=== PATIENT | male | born 1960 | race Caucasian/White ===

== ENCOUNTER 2018-06-26 17:27 | Inpatient (IN) | payer OTHER ==
[~2018-06-26] VITALS: Ht 172.7 cm; Wt 80.0 kg
--- OUTSIDE RECORDS SUMMARY | 2018-06-26 17:29 | XMS REPORT ---
Author Author [facility] Address Unknown Phone Unavailable Care Team Providers Care Globe Mounter Name Role Phone Cassie WALL Unavailable Unavailable Problems This patient has no known problems. Allergies, Adverse Reactions, Alerts This patient has no known allergies or adverse reactions. Medications This patient has no known medications. Results Test Description Test Time Test Comments Text Results Atomic Results Result Comments ANG TUNNEL CATH CENTRAL INS W/PORT C 2018-06-02 10:00:00 Reason for Exam:->C85.11 FINAL REPORT Procedure: Chest port placement. History: Malignancy Operators: Duke Conscious Sedation: Versed 1 mg, fentanyl 50 mcg, (Administered after informed consent was obtained) Vital signs were monitored throughout the procedure by a nurse, and remained stable. Physician intra- service time was 30 minutes. Total fluoroscopy time: 7 seconds Estimated dose reported as ( Ka, r): 0.1 mGy Technique: Informed written consent was obtained. The left neck and chest were prepped. All elements maximal sterile barrier technique was utilized for this procedure, including utilization of sterile scrub solution for skin prep, a large sterile sheet to cover the areas of the patient that were not prepped, and hand hygiene, mask, head covering, and sterile gown for performing radiologist and scrub technologist. Under direct real-time ultrasound guidance the left internal jugular vein was accessed with a micropuncture needle. A 5 Cuban sheath and dilator was placed. A 3 J-wire was then advanced and the access site was dilated. A 7 Cuban peel-away introducer sheath was then placed. The distal end of the 5 Cuban port catheter was then advanced through the peel-away and placed with tip under fluoroscopic control at the atriocaval junction. The proximal end of the catheter was then back tunneled on the anterior chest. A subcutaneous pocket was then made. The catheter was t hen attached to a single-lumen port which was placed into the pocket and anchored with 2 Monocryl sutures. The port flushed and aspirated easily following placement and was packed with 5cc of Heparin at 100U/cc (total dosage of 500U). The overlying skin was closed with interrupted subcuticular sutures. Steri-strips and dressing was applied. There are no immediate complications. The patient tolerated the procedure well and left the department in the same condition. Findings: 1. Inital ultrasound evaluation prior to port placement showed a patent and compressible left internal jugular vein. An ultrasound image was saved to PACS. 2. Spot radiograph following port placement revealed appropriate positioning with the tip projecting at the cavoatrial junction. No immediate pneumothorax identified. Impression: Successful placement of a single-lumen left sided chest port using sonographic and fluoroscopic guidance and conscious sedation. The tip is satisfactorily positioned at the atriocaval junction. A "Power" port rated for power CT injections was placed. Signed: Humberto Wall MDReport Verified Date/Time: 06/02/2018 10:00:33 Reading Location: [facility] Radiology Reading Room /APTT 2018-06-02 08:00:00 PROTIME (BEAKER) (test ksms=[id number]) 9.9 sec 9.3-12.0 INR (BEAKER) (test jwpp=219) 0.9 <=5.9 PARTIAL THROMBOPLASTIN TIME (BEAKER) (test ssqy=666) 25.8 sec 23.0-35.0 RECOMMENDED COUMADIN/WARFARIN INR THERAPY RANGESSTANDARD DOSE: 2.0 - 3.0 Inclu keenan: PROPHYLAXIS for venous thrombosis, systemic embolization; TREATMENT for yogi ous thrombosis and/or pulmonary embolus.HIGH RISK: Target INR is 2.5-3.5 for pat ients with mechanical heart valves.Final Information (Auto Output)Final Informat ion (Auto Output)Final Information (Auto Output)
--- OUTSIDE RECORDS SUMMARY | 2018-06-26 17:29 | XMS REPORT | Clinical Summary ---
Author Author MABLE [email or web address] [facility] Address Unknown Phone Unavailable Care Team Providers Care Middleware Consultant Name Role Phone Pcp, No PCP Unavailable Allergies No Known Allergies Medications No known medications Active Problems Not on file Encounters Care Team Description Date Type Specialty Marianna Wall MD Naik, Humberto Enriuqe II, MD Unspecified B-cell lymphoma, lymph nodes of head, face, and neck (HCC) 06/02/2018 Hospital Encounter Marianna Wall MD Unspecified B-cell lymphoma, lymph nodes of head, face, and neck (HCC) (Primary Dx) 05/29/2018 Outside Orders after 06/25/2017 Social History Date Tobacco Use Types Packs/Day Years Used Quit: 06/01/2014 Former Smoker Smokeless Tobacco: Former Snuff User Alcohol Use Drinks/Week oz/Week Comments No Alcohol Habits Answer Date Recorded How often do you have a drink containing alcohol? Never 06/01/2018 How many drinks containing alcohol do you have on Not asked a typical day when you are drinking? How often do you have six or more drinks on one Not asked occasion? Sex Assigned at Date Recorded Not on file Industry Job Start Date Occupation Not on file Not on file Not on file Travel End Travel History Travel Start No recent travel history available. Last Filed Vital Signs Time Taken Vital Sign Reading 06/02/2018 10:00 AM MICROBIOLOGY SOIL SCIENTIST Blood Pressure 126/84 06/02/2018 10:00 AM MICROBIOLOGY SOIL SCIENTIST Pulse 59 06/02/2018 10:00 AM MICROBIOLOGY SOIL SCIENTIST Temperature 37 C (98.6 F) 06/02/2018 10:00 AM MICROBIOLOGY SOIL SCIENTIST Respiratory Rate 18 06/02/2018 10:00 AM MICROBIOLOGY SOIL SCIENTIST Oxygen Saturation 97% - Inhaled Oxygen - Concentration 06/01/2018 9:33 AM MICROBIOLOGY SOIL SCIENTIST Weight 79.4 kg (175 lb) 06/01/2018 9:33 AM MICROBIOLOGY SOIL SCIENTIST Height 175.3 cm (5' 9") 06/01/2018 9:33 AM MICROBIOLOGY SOIL SCIENTIST Body Mass Index 25.84 Plan of Treatment Not on file Implants Device Identifier Shelf Expiration Date Model / Serial / Lot Implanted Type Area Manufactur er 11/21/2019 [id number] / / [id number] Power Port Left: Chest BARD Implanted: Qty: 1 on 06/02/2018 by Humberto Guy II, MD SYSTEMS Procedures Comments Procedure Name Priority Date/Time Associated Diagnosis CARDIAC CATH REPORT - 06/12/2018 SCAN 11:11 AM MICROBIOLOGY SOIL SCIENTIST IR PORT-A-CATH PLACEMENT Routine 06/02/2018 Unspecified B-cell 9:30 AM MICROBIOLOGY SOIL SCIENTIST lymphoma, lymph nodes of head, face, and neck (HCC) PT/APTT Routine 06/02/2018 7:41 AM MICROBIOLOGY SOIL SCIENTIST after 06/25/2017 Results * CARDIAC CATH REPORT - SCAN (06/12/2018 11:11 AM MICROBIOLOGY SOIL SCIENTIST) Narrative Performed At * IR Port-a-Cath Placement (06/02/2018 9:30 AM MICROBIOLOGY SOIL SCIENTIST) Narrative Performed At FINAL REPORT [employer] Procedure: Chest port placement. History: Malignancy Operators: Duke Conscious Sedation:Versed 1 mg, fentanyl 50 mcg, (Administered after informed consent was obtained) Vital signs were monitored throughout the procedure by a nurse, and remained stable. Physician intra-service time was 30 minutes. Total fluoroscopy time: 7 seconds Estimated dose reported as ( Ka, r):0.1 mGy Technique: Informed written consent was obtained. [...] and scrub technologist. Under direct real-time ultrasound guidancethe left internal jugular vein was accessed with a micropuncture needle. A 5 Bolivian sheath and dilator was placed. A 3 J-wire was then advanced and the access site was dilated. A 7 Bolivian peel-away introducer sheath was then placed. The distal end of the 5 Bolivian port catheter was then advanced through the peel-away and placed with tip under fluoroscopic control at the atriocaval junction. The proximal end of the catheter was then back tunneled on the anterior chest. A subcutaneous pocket was then made. The catheter was then attached to asingle-lumen port which was placed into the pocket and anchored with 2 Monocryl sutures. The port flushed and aspirated easily following placement and was packed with 5cc of Heparin at 100U/cc (total dosage of 500U). The overlying skin was closed with interrupted subcuticular sutures. Steri-strips anddressing was applied. There are no immediate complications. [...] CT injections was placed. Signed: Humberto Wall MD Report Verified Date/Time:06/02/2018 10:00:33 Reading Location: [facility] Radiology Reading Room Procedure Note Interface, External Ris In - 06/02/2018 10:02 AM MICROBIOLOGY SOIL SCIENTIST FINAL REPORT Procedure: Chest port placement. History: Malignancy Operators: Duke Conscious Sedation: Versed 1 mg, fentanyl 50 mcg, (Administered after informed consent was obtained) Vital signs were monitored throughout the procedure by a nurse, and remained stable. Physician intra-service time was 30 minutes. Total fluoroscopy time: [...] accessed with a micropuncture needle. A 5 Bolivian sheath and dilator was placed. A 3 J-wire was then advanced and the access site was dilated. A 7 Bolivian peel-away introducer sheath was then placed. The distal end of the 5 Bolivian port catheter was then advanced through the peel-away and placed with tip under fluoroscopic control at the atriocaval junction. The proximal end of the catheter was then back tunneled on the anterior chest. A subcutaneous pocket was then made. The catheter was then attached to a single-lumen port which was [...] CT injections was placed. Signed: Humberto Wall MD Report Verified Date/Time: 06/02/2018 10:00:33 Reading Location: [facility] Radiology Reading Room Performing Organization Address City/State/Zipcode Phone Number GE RIS * PT/aPTT (06/02/2018 7:41 AM MICROBIOLOGY SOIL SCIENTIST) Protime 9.9 9.3 - 12.0 sec [facility] [employer] LABORATORY INR 0.9 <=5.9 [facility] LABOR[facility] PTT 25.8 23.0 - 35.0 sec [facility] Specimen Blood Narrative Performed At RECOMMENDED COUMADIN/WARFARIN INR THERAPY RANGES [facility] [employer] STANDARD DOSE: 2.0 - 3.0 Includes: PROPHYLAXIS for venous thrombosis, LABORATORY systemic embolization; TREATMENT for venous thrombosis and/or pulmonary embolus. HIGH RISK: Target INR is 2.5-3.5 for patients with mechanical heart valves. Final Information (Auto Output) Final Information (Auto Output) Final Information (Auto Output) Performing Organization Address City/State/Zipcode Phone Number [facility] [address] [place] [address] after 06/25/2017 Insurance Payer Benefit Subscriber ID Type Phone Address Plan / [facility] HMO/POS CARE POS SELECT CHOICE
[2018-06-26] MEDS ORDERED: SODIUM CHLORIDE FLUSH 10 ML SYR INJ PRN (18:00)
[2018-06-26] MEDS ORDERED: IBUPROFEN 400 MG TAB PO STA (18:06)
--- NOTE | 2018-06-26 18:28 | NUR ---
No acute distress. Pt is more alert and responsive at this time. Family at the bedside. IV checked for patency and meds given as ordered.
--- NOTE | 2018-06-26 18:40 | Diagnostic Imaging Report ---
Exam: Head CT without contrast History: Fever, headache Comparison studies: None Technique: Axial images were obtained from the skull base to the vertex. Coronal and sagittal images reconstructed from the axial data. Dose modulation, iterative reconstruction, and/or weight based adjustment of the mA/kV was utilized to reduce the radiation dose to as low as reasonably achievable. Radiation dose: Total DLP: 969 mGy*cm. Estimated effective dose: DLP x 0.015 Intravenous contrast: None Findings: Scalp: No abnormalities. Bones: No fractures, blastic or lytic lesions. Brain sulci: Appropriate for age. Ventricles: Normal in size and configuration. No hydrocephalus. Extra-axial spaces: No masses, no fluid collection. Parenchyma: No abnormal densities. No masses, acute hemorrhage, acute or chronic vascular insults. Sellar/suprasellar region: No abnormalities. Craniocervical junction: Patent foramen magnum. No Chiari one malformation. Paranasal sinuses: The sphenoid sinuses are opacified, with chronic mucoperiosteal thickening as sequela chronic inflammation and contain inspissated secretions. Right posterior ethmoid opacification with scattered nonspecific bilateral ethmoid mucosal thickening. Incidental findings: Atherosclerotic calcifications in the carotid siphons. IMPRESSION: 1. No acute intracranial abnormalities. 2. Chronic inflammatory changes in the sphenoid and ethmoid sinuses. Signed by: Dr. Jake Lopez M.D. on 06/26/2018 6:37 PM
--- NOTE | 2018-06-26 18:48 | Diagnostic Imaging Report ---
EXAMINATION: CXR 2 VIEW - HOPD INDICATION: Fever COMPARISON: None FINDINGS: PA and lateral views TUBES and LINES: Left chest wall port in place with tip overlying SVC. LUNGS: Lungs are well inflated. There is no evidence of pneumonia or pulmonary edema. PLEURA: No pleural effusion or pneumothorax. HEART AND MEDIASTINUM: The cardiomediastinal silhouette is unremarkable. BONES AND SOFT TISSUES: No acute osseous lesion. Soft tissues are unremarkable. UPPER ABDOMEN: No free air under the diaphragm. IMPRESSION: No acute thoracic abnormality. Signed by: Dr. Andrew Tineo MD on 06/26/2018 6:45 PM
[2018-06-26] MEDS ORDERED: VANCOMYCIN HCL 1 GM in SODIUM CHLORIDE 0.9% 250ML 250 ML IV SCH (19:45)
--- OUTSIDE RECORDS SUMMARY | 2018-06-26 20:23 | XMS REPORT | Clinical Summary ---
Author Author MABLE [employer] [facility] Address Unknown Phone Unavailable Care Team Providers Care Long Term Name Role Phone Pcp, No PCP Unavailable Allergies No Known Allergies Medications No known medications Active Problems Not on file Encounters Care Team Description Date Type Specialty Marianna Wall MD Naik, Humberto Enrique II, MD Unspecified B-cell lymphoma, lymph nodes [...] Taken Vital Sign Reading 06/02/2018 10:00 AM VIBRATION ANALYST Blood Pressure 126/84 06/02/2018 10:00 AM VIBRATION ANALYST Pulse 59 06/02/2018 10:00 AM VIBRATION ANALYST Temperature 37 C (98.6 F) 06/02/2018 10:00 AM VIBRATION ANALYST Respiratory Rate 18 06/02/2018 10:00 AM VIBRATION ANALYST Oxygen Saturation 97% - Inhaled Oxygen - Concentration 06/01/2018 9:33 AM VIBRATION ANALYST Weight 79.4 kg (175 lb) 06/01/2018 9:33 AM VIBRATION ANALYST Height 175.3 cm (5' 9") 06/01/2018 9:33 AM VIBRATION ANALYST Body Mass Index 25.84 Plan of Treatment Not on file Implants Device Identifier Shelf Expiration Date Model / Serial / Lot Implanted Type Area Manufactur er 11/21/2019 [id number] / / [id number] Power Port Left: Chest BARD Implanted: Qty: 1 on 06/02/2018 by Humberto Guy II, MD SYSTEMS Procedures Comments Procedure Name Priority Date/Time Associated Diagnosis CARDIAC CATH REPORT - 06/12/2018 SCAN 11:11 AM VIBRATION ANALYST IR PORT-A-CATH PLACEMENT Routine 06/02/2018 Unspecified B-cell 9:30 AM VIBRATION ANALYST lymphoma, lymph nodes of head, face, and neck (HCC) PT/APTT Routine 06/02/2018 7:41 AM VIBRATION ANALYST after 06/25/2017 Results * CARDIAC CATH REPORT - SCAN (06/12/2018 11:11 AM VIBRATION ANALYST) Narrative Performed At * IR Port-a-Cath Placement (06/02/2018 9:30 AM VIBRATION ANALYST) Narrative Performed At FINAL REPORT [employer] Procedure: Chest port placement. History: Malignancy Operators: [...] accessed with a micropuncture needle. A 5 Hong Konger sheath and dilator was placed. A 3 J-wire was then advanced and the access site was dilated. A 7 Hong Konger peel-away introducer sheath was then placed. The distal end of the 5 Hong Konger port catheter was then advanced through the [...] MD Report Verified Date/Time:06/02/2018 10:00:33 Reading Location: [facility] Radiology Reading Room Procedure Note Interface, External Ris In - 06/02/2018 10:02 AM VIBRATION ANALYST FINAL REPORT Procedure: Chest port placement. History: [...] accessed with a micropuncture needle. A 5 Hong Konger sheath and dilator was placed. A 3 J-wire was then advanced and the access site was dilated. A 7 Hong Konger peel-away introducer sheath was then placed. The distal end of the 5 Hong Konger port catheter was then advanced through the [...] Report Verified Date/Time: 06/02/2018 10:00:33 Reading Location: [facility] Radiology Reading Room Performing Organization Address City/State/Zipcode Phone Number GE RIS * PT/aPTT (06/02/2018 7:41 AM VIBRATION ANALYST) Protime 9.9 9.3 - 12.0 sec [facility] LABORATORY INR 0.9 <=5.[address] [facility] LABORAT[facility] PTT 25.8 23.0 - 35.[address] [facility]OR[facility] Specimen Blood Narrative Performed At RECOMMENDED COUMADIN/WARFARIN INR THERAPY RANGES [facility] STANDARD DOSE: 2.0 - 3.0 Includes: PROPHYLAXIS for venous thrombosis, LABORATORY systemic embolization; TREATMENT for venous thrombosis and/or pulmonary embolus. HIGH RISK: Target INR is 2.5-3.5 for patients with mechanical heart valves. Final Information (Auto Output) Final Information (Auto Output) Final Information (Auto Output) Performing Organization Address City/State/Zipcode Phone Number [facility] [address] [place] [address] after 06/25/2017 Insurance Payer Benefit Subscriber ID Type Phone Address Plan / Group [facility] H[facility]/POS CARE POS SELECT CHOICE
[2018-06-26] MEDS ORDERED: ACETAMINOPHEN 325 MG TAB PO ONE (20:30)
[2018-06-26] MEDS ORDERED: PIPER-TAZ 3.375 GM 50 ML IV ONE (20:30)
--- NOTE | 2018-06-26 21:10 | NUR ---
Received patient from [facility]. Patient is A&Ox4, ambulatory & self transfer. Respiration even & unlabored, no distress noted. Tele #[id number] placed. IV to R AC SL, patent & no infiltration noted. Patient c/o BRONSON 04/01. Spoke w/ Dr. Colbert via telephone, order received for Tylenol #3 Q4 PRN.
[2018-06-26] MEDS: ACETAMINOPHEN/CODEINE 300MG - 30MG TAB PO PRN (22:10)
[2018-06-26] MEDS: SODIUM CHLORIDE 0.9% 1000ML 1,000 ML IV SCH (22:10)
[2018-06-26] MEDS: VANCOMYCIN 1GM/NS 250 ML 250 ML IV SCH (22:10)
[2018-06-26 23:09] VITALS: BP 114/62
[2018-06-26 23:17] VITALS: BP 114/62
[2018-06-27] VITALS (10 sets, daily range): BP systolic 88–144; BP diastolic 52–73
[2018-06-27] MEDS: SODIUM CHLORIDE 0.9% 1000ML 1,000 ML IV SCH ×3 (01:41→18:46)
[2018-06-27] MEDS: ACETAMINOPHEN/CODEINE 300MG - 30MG TAB PO PRN ×3 (02:03→10:56)
[2018-06-27 06:11] LABS: BASOPHILS % 0.6 % (0.0-1.0); EOSINOPHILS % 0.6 % (0.0-6.0); HEMATOCRIT 35.8 % (38.2-49.6); LYMPHOCYTES # (AUTO) 0.4 (1.0-3.2); LYMPHOCYTES % 22.3 % (18.0-39.1); MEAN CORPUSCULAR HEMOGLOBIN 28.2 pg (28-32); MEAN CORPUSCULAR HGB CONC 33.5 g/dL (31-35); MONOCYTES # (AUTO) 1.2 (0.2-0.8); MONOCYTES % 66.9 % (4.4-11.3); NEUTROPHILS # (AUTO) 0.2 (2.1-6.9); NEUTROPHILS % 8.5 % (38.7-80.0); PLATELET COUNT 298 x10e3/uL (140-360); RED BLOOD COUNT 4.26 x10e6/uL (4.3-5.7); RED CELL DISTRIBUTION WIDTH 14.3 % (11.7-14.4)
[2018-06-27] MEDS: ACETAMINOPHEN 325 MG TAB PO PRN ×2 (06:23→09:24)
[2018-06-27 06:35] LABS: ANION GAP 12.5 mmol/L (8-16); BLOOD UREA NITROGEN 8 mg/dL (7-26); BUN/CREATININE RATIO 9 (6-25); CALCIUM 8.5 mg/dL (8.4-10.2); CARBON DIOXIDE 21 mmol/L (22-29); CHLORIDE 102 mmol/L (98-107); CREATININE, SERUM 0.86 mg/dL (0.72-1.25); EST GLOMERULAR FILTRATION RATE > 60 ML/MIN (60-); GLUCOSE 105 mg/dL (74-118); POTASSIUM 3.5 mmol/L (3.5-5.1); SODIUM 132 mmol/L (136-145)
[2018-06-27] MEDS: VANCOMYCIN 1GM/NS 250 ML 250 ML IV SCH ×2 (09:25→21:20)
[2018-06-27] MEDS ORDERED: PEPCID20 MG PO (09:39)
[2018-06-27] MEDS ORDERED: ACETAMINOPHEN650 MG PO (09:39)
[2018-06-27] MEDS ORDERED: FAMOTIDINE 20 MG TAB PO PRN (09:45)
--- NOTE | 2018-06-27 10:45 | NUR ---
MD TRACEY INTO SEE PT, DISCUSSED POC
[2018-06-27] MEDS ORDERED: ACETAMINOPHEN 325 MG TAB PO PRN (11:00)
[2018-06-27] MEDS ORDERED: ACETAMINOPHEN/CODEINE 300MG - 30MG TAB PO PRN (11:30)
[2018-06-27] MEDS ORDERED: ONDANSETRON HCL INJ 2 MG/ML VIAL IV PRN (11:30)
--- NOTE | 2018-06-27 12:24 | NUR ---
SPOKE WITH MD BISHOP, AWARE OF CONSULT
[2018-06-27] MEDS: FILGRASTIM 300 MCG/ML VIAL SC SCH (12:30)
--- NOTE | 2018-06-27 13:30 | NUR ---
WHEELED OFF UNIT VIA WC FOR CT
[2018-06-27] MEDS: PIPER-TAZ 3.375 GM 50 ML IV SCH ×2 (14:00→22:26)
--- NOTE | 2018-06-27 14:00 | NUR ---
BACK IN ROOM VIA WC, NO CHANGE IN CONDITION
--- NOTE | 2018-06-27 14:17 | Diagnostic Imaging Report ---
CT Abdomen And Pelvis with Intravenous Contrast INDICATION: Lymphoma ^NEUTROPENIC FEVER ^[id number] ^1334 TECHNIQUE: Thin collimation axial images obtained from the diaphragm to the level of the pubic symphysis following the uneventful administration of 100 cc of low osmolar, nonionic intravenous contrast. Dose reduction techniques used: Automated exposure control, adjustment of the mAs and/or kVp according to patient size, standardized low-dose protocol, and/or iterative reconstruction technique. RADIATION DOSE: Total DLP: 379.51 mGy*cm Estimated effective dose: (DLP x 0.015 x size factor) mSv CTDIvol has been reviewed. It is below the limits set by the Radiation Protocol Committee (RPC). COMPARISON: None. ABDOMEN FINDINGS: Lung Bases: Bibasilar atelectasis. No pericardial or pleural effusion.. Liver: Decreased attenuation. No evidence for mass. Gallbladder: Present and appears normal. No biliary ductal dilatation. Pancreas: Normal attenuation without mass or ductal dilatation. Spleen: Normal in size. No evidence of mass.. Adrenal Glands: No evidence for mass. Kidneys: Right: Normal enhancement. No enhancing soft tissue mass. No hydronephrosis. Left: Normal enhancement. No enhancing soft tissue mass. 7 mm cyst in the upper pole. No hydronephrosis. Lymph Nodes: No enlarged abdominal retroperitoneal lymph nodes. Aorta: Normal in diameter PELVIS FINDINGS: Bowel: Stomach: Normal. Small Bowel: Normal in caliber with normal wall thickness. Large Bowel: Normal in caliber with normal wall thickness. Appendix: Not visualized and may be absent or collapsed.. Bladder: Well distended and normal. There is a trace amount of fluid in the right lateral paracolic gutter. No pelvic ascites. No loculated fluid collection. Bones: Dynamic compression screw and sideplate in the proximal right femur is in appropriate position without evidence of fracture or lucency to suggest loosening. Mild degenerative changes of the spine. Soft tissues: Fat-containing umbilical hernia has an aperture of 8 mm. IMPRESSION: 1. Steatosis. 2. Bibasilar atelectasis. Small foci of pneumonia cannot be excluded. 3. No splenomegaly or lymphadenopathy. 4. No evidence for bowel obstruction or inflammation. Signed by: Dr. Anna Holland MD on 06/27/2018 2:14 PM
--- NOTE | 2018-06-27 14:34 | NUR ---
MD VINCENT INTO SEE PT, DISCUSSED POC
[2018-06-27 15:15] LABS: BAND NEUTROPHILS % (MANUAL) 2 %; EOSINOPHILS % (MANUAL) 2 % (0-7); LYMPHOCYTES % (MANUAL) 40 % (19-48); MONOCYTES % (MANUAL) 49 % (3.4-9.0); NEUTROPHILS % (MANUAL) 5 % (40-74)
[2018-06-27 15:16] LABS: PLATELET ESTIMATE ADEQUATE; PLATELET MORPHOLOGY COMMENT NORMAL; RBC MORPHOLOGY COMMENT NORMAL
[2018-06-27] MEDS: IBUPROFEN 600 MG TAB PO PRN (16:01)
[2018-06-27] MEDS ORDERED: LIDOCAINE HCL 1% LOCAL INJ 20 ML VIAL ONE (16:27)
[2018-06-27] MEDS ORDERED: SODIUM CHLORIDE 0.9% 50ML 50 ML ONE (16:56)
[2018-06-27] MEDS ORDERED: IOPAMIDOL 370 MG/ML 200 ML INFUS..BTL INJ ONE (16:57)
[2018-06-27 17:10] LABS: INR 1.03; PROTHROMBIN TIME 14.4 seconds (11.9-14.5)
--- NOTE | 2018-06-27 17:13 | Consultation ---
DATE OF CONSULTATION: June 27, 2018 ATTENDING PHYSICIAN: Dr. Jacquie Colbert. REASON FOR CONSULTATION: Neutropenic fever. Thank you, Dr. Colbert, for asking me to see this patient. HISTORY OF PRESENT ILLNESS: The patient is a 57-year-old man referred for neutropenic fever. He presented to the emergency department with progressive headache for more than 1 week and fever and chills for 2 days. He had a rash on the back, which was treated with topical Benadryl several days earlier. Also, he has started having mild cough. He denies sputum production, shortness of breath, nausea, vomiting, diarrhea, abdominal pain, dysuria, and increased frequency of urination. He was diagnosed with non-Hodgkin's lymphoma in April 2018 and began R-CHOP (first cycle) 2 weeks ago. He has 3 dogs, which are healthy. He denies sick contact and recent travel. PAST MEDICAL HISTORY: Non-Hodgkin's lymphoma. PAST SURGICAL HISTORY: Appendectomy and right hip open reduction and internal fixation. ALLERGIES: NO KNOWN DRUG ALLERGIES. MEDICATIONS: The current antibiotics are Zosyn 3.375 grams IV piggyback q.8 hours and vancomycin 1 gram IV piggyback q.12 hours. IMMUNIZATIONS: He has not received influenza vaccination. FAMILY HISTORY: Noncontributory. SOCIAL HISTORY: He quit smoking cigarettes about 20 years ago. Also, he quit drinking alcohol about 5 years ago. REVIEW OF SYSTEMS: As per history of present illness. The patient is still having fever and severe headache. The back rash resolved. He has developed mild cough. He denies sputum production, shortness of breath, nausea, vomiting, diarrhea, abdominal pain, dysuria, and increased frequency of urination. PHYSICAL EXAMINATION GENERAL: Acutely ill. VITAL SIGNS: T-max of 103, pulse rate 100, respiratory rate 18, blood pressure 102/57, weight 174 pounds. HEENT: Normocephalic. There is no icterus or injection of conjunctivae. There is no ear or nasal discharge. Moist oral mucosa. No pharyngeal erythema or exudate. NECK: Supple. No meningismus. LUNGS: Good air entry bilaterally. HEART: Normal S1 and S2. Regular. ABDOMEN: Normal bowel sounds in all quadrants. Soft and nontender. EXTREMITIES: There is no edema, clubbing, or cyanosis. SKIN: There is no acute erythema. No back rash noted at this time. AIX ADMINISTRATOR: Awake, alert, and oriented to person, place, and time. Nonfocal. LABORATORY AND DIAGNOSTICS: WBC 1750, hemoglobin 12, platelets 298,000, neutrophils 8.5, lymphs 22.3, mono 66.9, eosinophils 0.6, basophils 0.6, BUN 8, creatinine 0.86. Blood culture is pending. Urine culture is also pending. Brain CT scan showed no acute intracranial abnormality but there were chronic inflammatory changes in the sphenoid and ethmoid sinuses. The chest x-ray showed no acute thoracic abnormality. CT scan of the abdomen and pelvis showed steatosis and bibasilar atelectasis. IMPRESSION 1. Sepsis, present on admission. 2. Neutropenic fever, present on admission. 3. Immunosuppression due to cancer chemotherapy, present on admission. 4. Non-Hodgkin's lymphoma. PLAN 1. The patient will need lumbar puncture. Check CSF cell count, glucose, protein, gram stain culture and sensitivity, and HSV PCR. Also check respiratory virus PCR. 2. Start ampicillin 2 grams IV piggyback q. 4 hours. Influenza vaccination should be administered prior to discharge if the patient agrees. Job#: [id number] SUDHAKAR
[2018-06-27] MEDS: AMPICILLIN SOD 2 GM/NS 100ML 100 ML IV SCH ×2 (17:40→21:37)
--- NOTE | 2018-06-27 17:53 | NUR ---
CONSENT COMPLETED FOR LUMBAR PUNCTURE, ARNOLDO IN RADIOLOGY NOTIFIED
--- NOTE | 2018-06-27 18:52 | NUR ---
PT WHEELED OFF UNIT VIA BED FOR LUMBAR PUNCTURE, AT SIDE
[2018-06-27 20:42] LABS: APPEARANCE,CSF CLEAR (CLEAR); COLOR,CSF COLORLESS (COLORLESS); TUBE NUMBER 3
[2018-06-27 20:47] LABS: WHITE BLOOD CELL,CSF 1 cells/uL (0-5)
[2018-06-27 21:10] LABS: TOTAL PROTEIN,CSF 51.7 mg/dL (15-40)
[2018-06-28] VITALS (8 sets, daily range): BP systolic 99–118; BP diastolic 56–71
[2018-06-28] MEDS: IBUPROFEN 600 MG TAB PO PRN ×3 (01:54→17:25)
[2018-06-28] MEDS: AMPICILLIN SOD 2 GM/NS 100ML 100 ML IV SCH ×2 (01:54→05:37)
[2018-06-28] MEDS: SODIUM CHLORIDE 0.9% 1000ML 1,000 ML IV SCH ×3 (03:21→21:37)
[2018-06-28] MEDS: PIPER-TAZ 3.375 GM 50 ML IV SCH ×3 (06:24→23:00)
[2018-06-28 06:39] LABS: BASOPHILS % 0.6 % (0.0-1.0); EOSINOPHILS % 0.3 % (0.0-6.0); HEMATOCRIT 34.6 % (38.2-49.6); HEMOGLOBIN 11.5 g/dL (14.0-18.0); LYMPHOCYTES % 13.4 % (18.0-39.1); MEAN CORPUSCULAR HEMOGLOBIN 28.4 pg (28-32); MEAN CORPUSCULAR HGB CONC 33.2 g/dL (31-35); MEAN CORPUSCULAR VOLUME 85.4 fL (81-99); MONOCYTES # (AUTO) 2.1 (0.2-0.8); MONOCYTES % 29.6 % (4.4-11.3); NEUTROPHILS # (AUTO) 3.9 (2.1-6.9); NEUTROPHILS % 54.7 % (38.7-80.0); PLATELET COUNT 312 x10e3/uL (140-360); RED BLOOD COUNT 4.05 x10e6/uL (4.3-5.7); RED CELL DISTRIBUTION WIDTH 14.3 % (11.7-14.4)
[2018-06-28 06:58] LABS: ALANINE AMINOTRANSFERASE 68 IU/L (0-55); ALBUMIN 2.5 g/dL (3.5-5.0); ALKALINE PHOSPHATASE 46 IU/L (40-150); ANION GAP 10.7 mmol/L (8-16); BILIRUBIN,DIRECT 0.2 mg/dL (0.0-0.5); BLOOD UREA NITROGEN 8 mg/dL (7-26); BUN/CREATININE RATIO 10 (6-25); CALCIUM 8.4 mg/dL (8.4-10.2); CARBON DIOXIDE 23 mmol/L (22-29); CHLORIDE 105 mmol/L (98-107); CREATININE, SERUM 0.77 mg/dL (0.72-1.25); EST GLOMERULAR FILTRATION RATE > 60 ML/MIN (60-); GLUCOSE 95 mg/dL (74-118); POTASSIUM 3.7 mmol/L (3.5-5.1); SODIUM 135 mmol/L (136-145)
[2018-06-28] MEDS: FILGRASTIM 300 MCG/ML VIAL SC SCH (08:35)
[2018-06-28] MEDS: VANCOMYCIN 1GM/NS 250 ML 250 ML IV SCH ×2 (08:35→21:37)
--- NOTE | 2018-06-28 09:00 | NUR ---
SPOKE WITH MD BISHOP WHEN ROUNDING . OK DISCHARGE UPON HIS END. STATES PT CAN BE TAKEN ON NEUTROPENIC PRECAUTIONS AT THIS TIME WELL. ORDERS RECEIVED
[2018-06-28 10:05] LABS: BAND NEUTROPHILS % (MANUAL) 25 %; EOSINOPHILS % (MANUAL) 1 % (0-7); LYMPHOCYTES % (MANUAL) 30 % (19-48); METAMYELOCYTES % (MANUAL) 7 % (0-0); MONOCYTES % (MANUAL) 20 % (3.4-9.0); NEUTROPHILS % (MANUAL) 16 % (40-74); PLATELET ESTIMATE ADEQUATE; PLATELET MORPHOLOGY COMMENT NORMAL; RBC MORPHOLOGY COMMENT NORMAL
--- NOTE | 2018-06-28 14:24 | Diagnostic Imaging Report ---
EXAMINATION: CHEST SINGLE (PORTABLE) COMPARISON: Chest x-ray 06/26/2018 INDICATION: Shortness of breath, pneumonia ^R/O PNA ^[id number] ^[id number] DISCUSSION: Frontal view of the chest obtained at 1336 hours. HEART AND MEDIASTINUM: The cardiomediastinal silhouette is unremarkable. LINES: MediPort catheter remains in the SVC LUNGS: Lung volumes are lower. There are streaky airspace opacities in the lingula. No confluent infiltrates. No interstitial edema PLEURA: No pleural effusion or pneumothorax. BONES AND SOFT TISSUES: No focal osseous lesion. The soft tissues are normal. IMPRESSION: Lower lung volumes with new subsegmental atelectasis in the lingula. No infiltrates to suggest pneumonia. Signed by: Dr. Anna Holland MD on 06/28/2018 2:21 PM
--- NOTE | 2018-06-28 19:05 | NUR ---
Completed bedside rounds with morning nurse. Lying supine in bed. Pt alert to name. Family at bedside. Denies pain at this time. No acute distress noted.
[2018-06-29] VITALS: BP 123/66
[2018-06-29 04:00] VITALS: BP 108/61
[2018-06-29] MEDS: PIPER-TAZ 3.375 GM 50 ML IV SCH (05:48)
[2018-06-29 06:16] LABS: BASOPHILS # (AUTO) 0.1 (0.0-0.1); BASOPHILS % 0.2 % (0.0-1.0); EOSINOPHILS % 0.2 % (0.0-6.0); HEMATOCRIT 32.4 % (38.2-49.6); HEMOGLOBIN 11.1 g/dL (14.0-18.0); LYMPHOCYTES # (AUTO) 1.2 (1.0-3.2); LYMPHOCYTES % 4.9 % (18.0-39.1); MEAN CORPUSCULAR HEMOGLOBIN 28.3 pg (28-32); MEAN CORPUSCULAR HGB CONC 34.3 g/dL (31-35); MEAN CORPUSCULAR VOLUME 82.7 fL (81-99); MONOCYTES # (AUTO) 3.4 (0.2-0.8); MONOCYTES % 14.1 % (4.4-11.3); NEUTROPHILS # (AUTO) 16.8 (2.1-6.9); NEUTROPHILS % 68.8 % (38.7-80.0); PLATELET COUNT 322 x10e3/uL (140-360); RED BLOOD COUNT 3.92 x10e6/uL (4.3-5.7); RED CELL DISTRIBUTION WIDTH 14.4 % (11.7-14.4)
[2018-06-29 06:34] LABS: ANION GAP 10.5 mmol/L (8-16); BLOOD UREA NITROGEN 6 mg/dL (7-26); BUN/CREATININE RATIO 8 (6-25); CALCIUM 8.4 mg/dL (8.4-10.2); CARBON DIOXIDE 22 mmol/L (22-29); CHLORIDE 110 mmol/L (98-107); CREATININE, SERUM 0.73 mg/dL (0.72-1.25); EST GLOMERULAR FILTRATION RATE > 60 ML/MIN (60-); GLUCOSE 97 mg/dL (74-118); POTASSIUM 3.5 mmol/L (3.5-5.1); SODIUM 139 mmol/L (136-145)
--- NOTE | 2018-06-29 06:42 | NUR ---
Spoke with Dr. Colbert regarding increase WBC 24.42. Dr. Colbert stated it is ok because Pt received Neupogen yesterday.
--- NOTE | 2018-06-29 07:45 | NUR ---
SPOKE WITH MD BANSAL REGARDING VANC TROUGH . STATES TO DC MEDICATION AT THIS TIME. STATES HE WILL SPEAK TO MD VINCENT REGARDING ORDER OF DISCONTINUATION.
[2018-06-29 07:51] LABS: BAND NEUTROPHILS % (MANUAL) 10 %; EOSINOPHILS % (MANUAL) 1 % (0-7); LYMPHOCYTES % (MANUAL) 12 % (19-48); MONOCYTES % (MANUAL) 17 % (3.4-9.0); NEUTROPHILS % (MANUAL) 58 % (40-74); SMUDGE CELLS FEW
[2018-06-29 07:52] LABS: ANISOCYTOSIS SLIGHT; HYPOCHROMASIA SLIGHT; PLATELET ESTIMATE ADEQUATE; PLATELET MORPHOLOGY COMMENT NORMAL; RBC MORPHOLOGY COMMENT NORMAL
[2018-06-29 07:53] LABS: TOXIC GRANULATION SLIGHT
[2018-06-29 09:11] VITALS: BP 123/66
--- NOTE | 2018-06-29 09:14 | Progress Note ---
DATE: June 29, 2018 SUBJECTIVE: Patient seen and examined today. Patient is clinically doing better. Denies any worsening symptoms. No chest pain, headache, or dizziness. PHYSICAL EXAMINATION: GENERAL: Alert, awake, communicative. HEENT: Normocephalic, atraumatic. Sclerae pale. Conjunctivae clear. NECK: Supple. CHEST: Clear to auscultation. CARDIOVASCULAR: Regular rate and rhythm. ABDOMEN: Soft. EXTREMITIES: No edema. LABS AND IMAGING: Reviewed. ASSESSMENT AND PLAN: Patient with history of lymphoma, started on R-CHOP, admitted with neutropenia and fever. Clinically doing better. Patient received Neupogen. White cell count shoots up to the 24 right now. Do not recommend anymore Neupogen treatment. Clinical condition is stable. Recommend patient to follow with primary oncologist. Job#: [id number]
[2018-06-29 09:35] VITALS: BP 123/66
--- NOTE | 2018-06-29 11:13 | Discharge Summary ---
PRIMARY CARE DOCTOR: Keagan. He does not have a primary care doctor over there. FINAL DIAGNOSIS: Neutropenic fever. SECONDARY DIAGNOSIS: Large B-cell lymphoma. CONSULTANTS 1. Sadaf Bose MD, hematology-oncology. 2. Dr. Delacruz, infectious disease. PROCEDURES/STUDIES PERFORMED 1. CT of the abdomen and pelvis. 2. Lumbar puncture. HISTORY: Per H and P. HOSPITAL COURSE: The patient initially was put on IV vancomycin and Zosyn. Epogen was started. His white blood cells responded very well. On the 2nd day, it went up to 7. On the day of discharge, it is 24. The patient has been afebrile for almost [address] of the abdomen and pelvis was okay. LP did not have any evidence of meningitis. Empirically ampicillin was started, and this was discontinued. Most likely, the patient can go home later today after he is seen by Dr. Delacruz. We will also have to determine which oral antibiotic to send him home with. The patient already has a followup appointment tomorrow with his oncologist. The patient was seen and examined today. It took 32 minutes total to discharge this patient including discussing this case with Dr. Delacruz. CONDITION ON DISCHARGE: Improved. DISCHARGE MEDICATIONS: Please see medication reconciliation form. OKSANA TRACEY M.D. Job#: [id number]
[2018-06-29 12:51] VITALS: BP 113/69
[2018-06-29] MEDS ORDERED: LEVAQUIN500 MG PO (13:53)
--- NOTE | 2018-06-29 14:25 | NUR ---
discharge instructions and prescriptions given. pt verbalized understanding. iv dc pressure dressing applied and taped. tele dc . pt is now off unit via wheel chair
--- NOTE | 2018-07-03 10:53 | Diagnostic Imaging Report ---
Examination: CT guided right L4-L5 lumbar puncture Clinical indication: History of lymphoma, neutropenia Wind Tunnel Mechanic: Ozzy Joel MD Anesthesia: Local. Medications: 10 cc 1% subcutaneous lidocaine Exposure/ DAP: Total exam dose length product: 208.6 mGy-cm Procedure: Informed consent was obtained from the patient following delineation of the risks, benefits, and alternatives to the procedure. Patient was then taken to the CT suite and placed prone on the table. Preliminary imaging of the lumbosacral spine was performed. The patient's back was marked, prepped and draped in the usual sterile fashion. After administration of local anesthesia, a 22-gauge x 3.5 inch spinal needle was advanced via a right of midline approach into the L4-L5 subarachnoid utilizing CT guidance. The pressure measurement utilizing prone positioning was 15 cm of H20. Approximately 9 cc of clear, colorless cerebrospinal fluid was removed and sent for analysis. The needle was removed and sterile bandage was applied. The patient tolerated the procedure well. Impression: CT guided L4-L5 lumbar puncture with successful removal of cerebrospinal fluid as above. Pressure measurement of 15 cm H20 on prone positioning. Signed by: Dr. Ozzy Joel MD on 06/30/2018 7:16 AM
== END 2018-06-29 14:20 | disposition home or self-care (01) | DRG 872 ==
LOC: FSED 17:27 → ERHOLD 18:02 → MED/SURG 21:10
PROVIDERS: ADMIT Internal Medicine; ATTEND Internal Medicine
PROC: 009U3ZX Drainage of Spinal Canal, Percutaneous Approach, Diagnostic (ICD-10-PCS; principal; 2018-06-26)
DX: A41.9 Sepsis, unspecified organism (principal); E87.1 Hypo-osmolality and hyponatremia; E87.2 Acidosis; C85.90 Non-Hodgkin lymphoma, unspecified, unspecified site; D70.1 Agranulocytosis secondary to cancer chemotherapy; R50.81 Fever presenting with conditions classified elsewhere; T45.1X5A Adverse effect of antineoplastic and immunosuppressive drugs, initial encounter; D69.59 Other secondary thrombocytopenia
CPT/HCPCS: 36415; 62270; 70450; 71045; 71046; 74177; 77012; 80048; 80053; 80076; 81003; 82945; 83605; 84157; 85025; 85610; 87040; 87070; 87086; 87205; 87400; 87529; 89051; 93005; 99284; J1442; J2001; J2543; J3370; J7030; Q9967